=== PATIENT | female | born 1930 | race Caucasian/White ===

== ENCOUNTER 2019-05-13 12:09 | Emergency (ER) | payer MEDICARE ==
[~2019-05-13] VITALS: Ht 152.4 cm; Wt 40.8 kg
== END 2019-05-13 15:45 | disposition home or self-care (01) ==
LOC: ER 12:09
DX: S16.1XXA Strain of muscle, fascia and tendon at neck level, initial encounter (principal); S39.012A Strain of muscle, fascia and tendon of lower back, initial encounter; F03.90 Unspecified dementia, unspecified severity, without behavioral disturbance, psychotic disturbance, mood disturbance, and anxiety; V49.9XXA Car occupant (driver) (passenger) injured in unspecified traffic accident, initial encounter
CPT/HCPCS: 72040; 72100; 99284-25